=== PATIENT | female | born 1980 | race Caucasian/White ===

== ENCOUNTER → 2017-01-08 | Outpatient (CLI) | payer BC ==
[~2017-01-08] VITALS: Ht 170.2 cm; Wt 68.7 kg
[~2017-01-08] MED LIST: IBUPROFEN 600600 M1 PO; MOBIC15 MG PO; OXYCODONE-ACET1 EACH PO
--- NOTE | ~2017-01-08 | HPC ---
[facility] [place] [address] PAIN MANAGEMENT CONSULTATION Name: DONNA ORTIZ Room #: REG [facility].#: [id number] Admission: 01/08/17 Attend Phys: Jaun Muse MD Discharge: Date of : 82 Report #: [id number] THIS REPORT FOR: //name// CC: Jaun Chan MD CHIEF COMPLAINT: Back pain with pain going down into the left and right leg. HISTORY OF PRESENT ILLNESS: The patient is a 36-year-old female. 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 She noted worsening of back pain after bending over for a period of time. She is experiencing pain and discomfort that is radiating down into her left and right leg. She denies any bowel or bladder dysfunction. She did have an MRI, which showed bulging disk and an annular fissure at the L4-L5 area, which is putting mass effect on the thecal sac. ALLERGIES: No known drug allergies. PAST MEDICAL HISTORY: Generally unremarkable. PAST SURGICAL HISTORY: Breast augmentation 2004. 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 She is . Denies use of tobacco, denies use of alcoholic beverages. REVIEW OF SYSTEMS: Questionnaire in the chart, 14-point review indicates generally good health otherwise unremarkable. Does note some numbness and tingling sensation in her lower extremities as per HPI. MEDICATIONS: She has used ibuprofen p.r.n. She has used oxycodone about one tablet per day. LABORATORY DATA: MRI of the lumbar spine dated 01/01/2007, 1. L4-L5, there is disk desiccation with a generalized disk bulge, with a small posterior/central disk protrusion and annular fissure, that has mild mass effect upon the ventral thecal sac. Minor facet arthrosis. 2. L5-S1, small posterior/central disk protrusion without significant mass effect upon the ventral thecal sac. PHYSICAL EXAMINATION: Blood pressure is 113/68, pulse 133, respiratory rate 16, room air saturation is 99, height 5 feet 7 inches, weight 68 kilograms. BMI 23. The patient complains of pain and discomfort in the lower portion of her back. She is experiencing pain, which radiates down the L4-L5 distribution of her right and left leg. Certain movements exacerbate the pain and discomfort. She walks with a slightly antalgic gait because of pain and discomfort in the low back area with pain radiating down into her legs. [address] [address] PAIN MANAGEMENT CONSULTATION Name: DONNA ORTIZ Room #: REG [facility]#: [id number] Admission: 01/08/17 Attend Phys: Jaun Muse MD Discharge: Date of : 82 Report #: [id number] IMPRESSION: Lumbar radiculopathy. RECOMMENDATIONS: We discussed the treatment options with the patient. Risks and benefits of an epidural steroid injection were discussed. A model was used to indicate the area of pathology. She and her indicate that they understand the pathophysiology of the back pain as explained. Possible complications of an epidural steroid injection, which could include but are not limited to infection, bleeding and post-dural puncture headache were discussed. She elects to proceed. PROCEDURE NOTE: The patient was placed in the prone position. Fluoroscopy was used to identify the L4-L5 interspace. This area had been sterilely prepped with Betadine and infiltrated with 0.25% bupivacaine. Total of 80 mg Depo-Medrol, 40 mg triamcinolone and 2 mL of 0.25% bupivacaine was injected. The patient tolerated the procedure well. There were no complications. Her pain was rated at 4 at the time of discharge. She will follow up in the future as needed. A script for Mobic 15 mg 1 p.o. every day will be taken for the next 1-2 months. She will call us if she has any problems with her medications. We would like to thank you for letting us participate in her care. We hope she continues to improve. By: [id number] Jaun Muse MD /corazon
[2017-01-08 10:42] VITALS: BP 113/68
== END ==
LOC: PAIN 06:49
DX: M54.16 Radiculopathy, lumbar region (principal)

== ENCOUNTER → 2017-02-10 | Outpatient (CLI) | payer BC ==
[~2017-02-10] VITALS: Ht 170.2 cm; Wt 69.2 kg
--- NOTE | ~2017-02-10 | HPC ---
[facility] [place] [address] [place] [address] PAIN MANAGEMENT CONSULTATION Name: DONNA ORTIZ Room #: REG [facility].#: [id number] Admission: 02/10/17 Attend Phys: Jaun Muse MD Discharge: Date of : 82 Report #: [id number] THIS REPORT FOR: //name// CC: Jaun Chan MD DATE OF SERVICE: 02/10/2017 FOLLOWUP COMPLAINT: The pain is greater than 50% improved. FOLLOWUP HISTORY: The patient is a 36-year-old female who has been seen in the pain clinic because of pain and discomfort with pain radiating down into the right L5 distribution. She underwent an epidural steroid injection at the last visit. She is having less of the lancinating shooting pain down in her leg. She still has some numbness and weakness involving the leg. It still slows her down in activities of daily living. She is able to work one half day now. She was unable to work prior to the injection. She has started physical therapy and is following they direction. She has had no bowel or bladder dysfunction as a result of the procedure. PHYSICAL EXAMINATION: Height 5 feet 7 inches, weight 67 kilograms. BMI is 23. The patient continues to have pain and discomfort radiating down the right anterior portion of her leg with some tingling. She rates her pain and discomfort as 5 at this juncture. It can be exacerbated by sitting and improves with walking. IMPRESSION: 1. L4-L5 with disk desiccation and disk bulge with a small posterior/central disk protrusion and annular fissure. There is mild mass effect upon the ventral thecal sac. 2. L5-S1 small posterior central disk protrusion. 3. Lumbar radiculopathy, improved with greater than 50% result after the first epidural steroid injection. RECOMMENDATIONS: We discussed treatment options with the patient. 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 She is able to work half days, but still is limited in her ability to engage fully in her occupation. She feels that another epidural steroid injection would be helpful. She would like to proceed with another injection. We discussed treatment options with the patient. Risks and benefits of the procedure were discussed. They could include infection, increased muscle soreness, headaches, bleeding, worsening of pain or no change in pain or other possible complications and the patient elects to proceed. [address] [address] PAIN MANAGEMENT CONSULTATION Name: DONNA ORTIZ Room #: REG [facility]#: [id number] Admission: 02/10/17 Attend Phys: Jaun Muse MD Discharge: Date of : 82 Report #: [id number] PROCEDURE NOTE: The patient was placed in the prone position. Fluoroscopy was used to identify the right L4-L5 interspace. This area had been sterilely prepped with Betadine and infiltrated with 0.25% bupivacaine. Total of 80 mg Depo-Medrol, 40 mg triamcinolone and 2 mL of 0.25% bupivacaine was injected. The patient tolerated the procedure well. There were no complications. We would like to thank you for letting us participate in her care. We hope she continues to improve. By: [id number] Jaun Muse MD /nt
[2017-02-10 11:57] VITALS: BP 112/79
== END | disposition home or self-care (01) ==
LOC: PAIN 07:23
DX: M51.16 Intervertebral disc disorders with radiculopathy, lumbar region (principal)